=== PATIENT | male | born 1960 | race African-American/Black ===

== ENCOUNTER 2018-11-24 20:28 | Emergency (ER) | payer MEDICAID ==
[~2018-11-24] VITALS: Ht 193 cm; Wt 196.9 kg
[2018-11-24 21:23] LABS: Basophils # (auto) 0.1 uL; Eosinophils # (auto) 0.3 uL; Mean Corpuscular Volume 91.5 fL (80.0-100.0); Neutrophils # (auto) 8.7 uL; Nucleated Red Blood Cells % 0.1 %
[2018-11-24 21:25] LABS: Basophils % (auto) 0.5 % (0.0-2.0); Eosinophils % (auto) 2.1 % (0.0-7.0); Hematocrit 39.2 % (41.0-53.0); Hemoglobin 12.2 g/dL (13.5-17.5); Lymphocytes # (auto) 2.4 uL; Lymphocytes % (auto) 19.9 % (10.0-50.0); Mean Corpuscular Hemoglobin 28.5 pg (28.0-32.0); Mean Corpuscular Hgb Conc. 31.2 g/dL (32.0-36.0); Monocytes # (auto) 0.8 uL; Monocytes % (auto) 6.5 % (0.0-12.0); Platelet Count (auto) 265 10^3/uL (140-450); Red Blood Cells 4.28 10^6/uL (4.5-5.90); Red Cell Distribution Width 16.4 % (11.8-14.3); White Blood Cell 12.3 10^3/uL (4.4-10.8)
[2018-11-24 21:39] LABS: Albumin 2.8 g/dL (3.4-5.0); Calcium 8.9 mg/dL (8.5-10.1); Potassium 3.9 mmol/L (3.5-5.1)
[2018-11-24 21:44] LABS: BUN/Creatinine Ratio 9.3; Bilirubin, Total 0.4 mg/dL (0.2-1.0); Total Protein 8.1 g/dL (6.4-8.2)
[2018-11-25] MEDS ORDERED: PIPERACILLIN-TAZOB 3.375GM 100 ML IV ONE (01:45)
[2018-11-25] MEDS ORDERED: ENOXAPARIN SOD 100 MG/1 ML SYRINGE SC ONE (01:45)
[2018-11-25] MEDS ORDERED: VANCOMYCIN 1GM/250ML 250 ML IV ONE (01:45)
[2018-11-25 02:32] VITALS: BP 144/77
== END 2018-11-25 04:18 | disposition home or self-care (01) ==
LOC: ER 20:28
DX: I82.4Z2 Acute embolism and thrombosis of unspecified deep veins of left distal lower extremity (principal); L89.149 Pressure ulcer of left lower back, unspecified stage; I13.0 Hypertensive heart and chronic kidney disease with heart failure and stage 1 through stage 4 chronic kidney disease, or unspecified chronic kidney disease; E11.22 Type 2 diabetes mellitus with diabetic chronic kidney disease; N18.9 Chronic kidney disease, unspecified; I50.9 Heart failure, unspecified; J44.9 Chronic obstructive pulmonary disease, unspecified; E78.00 Pure hypercholesterolemia, unspecified
CPT/HCPCS: 36415; 80053; 83605; 85025; 87040; 87077; 87186; 87205; 93971; 96365; 96367; 96372; 99284; J1650; J2543; J3370

== ENCOUNTER 2018-12-07 10:32 | Emergency (ER) | payer MEDICAID ==
[~2018-12-07] VITALS: Ht 193 cm; Wt 216.4 kg
[2018-12-07] MEDS ORDERED: CLINDAMYCIN 600 MG/4 ML VL IM ONE (11:15)
[2018-12-07] MEDS ORDERED: PIPERACILLIN-TAZOB 3.375GM 100 ML IV ONE (11:15)
[2018-12-07 11:17] LABS: Basophils # (auto) 0.1 uL; Eosinophils # (auto) 0 uL; Eosinophils % (auto) 0.2 % (0.0-7.0); Mean Corpuscular Hgb Conc. 30.8 g/dL (32.0-36.0); Nucleated Red Blood Cells % 0.1 %
[2018-12-07 11:19] LABS: Basophils % (auto) 0.9 % (0.0-2.0); Hematocrit 37.2 % (41.0-53.0); Hemoglobin 11.5 g/dL (13.5-17.5); Lymphocytes # (auto) 3.2 uL; Lymphocytes % (auto) 24.7 % (10.0-50.0); Mean Corpuscular Hemoglobin 28.2 pg (28.0-32.0); Mean Corpuscular Volume 91.3 fL (80.0-100.0); Monocytes % (auto) 8.1 % (0.0-12.0); Neutrophils # (auto) 8.4 uL; Neutrophils % (auto) 66.1 % (37.0-80.0); Platelet Count (auto) 298 10^3/uL (140-450); Red Blood Cells 4.07 10^6/uL (4.5-5.90); Red Cell Distribution Width 17.7 % (11.8-14.3); White Blood Cell 12.8 10^3/uL (4.4-10.8)
[2018-12-07 11:31] LABS: Albumin 2.6 g/dL (3.4-5.0); BUN/Creatinine Ratio 8.2; Calcium 8.2 mg/dL (8.5-10.1); Magnesium 2.1 mg/dL (1.6-2.6); Potassium 3.3 mmol/L (3.5-5.1)
[2018-12-07 11:36] LABS: Bilirubin, Total 0.5 mg/dL (0.2-1.0); INR 1.07 (0.9-1.15); Partial Thromboplastin Time 29.9 sec (23.64-32.05); Total Protein 7.6 g/dL (6.4-8.2)
[2018-12-07 11:52] LABS: Urine Bacteria FEW /hpf (None Seen); Urine Blood Negative /uL (Negative); Urine Specific Gravity 1.009 (1.001-1.035); Urine WBC 33 /hpf (0 - 3)
[2018-12-07] MEDS ORDERED: POTASSIUM EFFERVESENT TAB 25 MEQ PO ONE (12:30)
[2018-12-07 13:00] VITALS: BP 95/53
== END 2018-12-07 13:17 | disposition home or self-care (01) ==
LOC: EDBD 10:32 → ER 10:32
DX: I82.402 Acute embolism and thrombosis of unspecified deep veins of left lower extremity (principal); N39.0 Urinary tract infection, site not specified; E66.9 Obesity, unspecified; J44.9 Chronic obstructive pulmonary disease, unspecified; E78.5 Hyperlipidemia, unspecified; E11.22 Type 2 diabetes mellitus with diabetic chronic kidney disease; I13.0 Hypertensive heart and chronic kidney disease with heart failure and stage 1 through stage 4 chronic kidney disease, or unspecified chronic kidney disease; N18.9 Chronic kidney disease, unspecified; I50.9 Heart failure, unspecified; Z68.43 Body mass index [BMI] 50.0-59.9, adult
CPT/HCPCS: 36415; 80053; 81001; 83735; 84484; 85025; 85610; 85730; 93005; 93970; 96365; 96366; 96372; 99284; J2543

== ENCOUNTER 2019-01-12 00:15 | Inpatient (IN) | payer MEDICAID ==
[~2019-01-12] VITALS: Ht 193 cm; Wt 222.0 kg
[2019-01-12 01:21] LABS: Basophils # (auto) 0.1 uL; Eosinophils # (auto) 0.1 uL; Hematocrit 38.7 % (41.0-53.0); Hemoglobin 12.2 g/dL (13.5-17.5); Lymphocytes # (auto) 1.9 uL; Lymphocytes % (auto) 28.4 % (10.0-50.0); Mean Corpuscular Hgb Conc. 31.5 g/dL (32.0-36.0); Mean Corpuscular Volume 88.9 fL (80.0-100.0); Monocytes # (auto) 0.6 uL; Monocytes % (auto) 9.4 % (0.0-12.0); Neutrophils % (auto) 59.2 % (37.0-80.0); Nucleated Red Blood Cells % 0.9 %; Platelet Count (auto) 229 10^3/uL (140-450); Red Blood Cells 4.35 10^6/uL (4.5-5.90); Red Cell Distribution Width 18.8 % (11.8-14.3); White Blood Cell 6.8 10^3/uL (4.4-10.8)
[2019-01-12 01:37] LABS: INR 1.13 (0.9-1.15); Partial Thromboplastin Time 27.1 sec (23.64-32.05)
[2019-01-12 01:38] LABS: Alanine Aminotransferase 24 U/L (16-61); Albumin 2.9 g/dL (3.4-5.0); Anion Gap 7 (5-15); Blood Urea Nitrogen 25 mg/dL (7-18); Calcium 8.4 mg/dL (8.5-10.1); Carbon Dioxide 31 mmol/L (21-32); Chloride 104 mmol/L (98-107); GFR African American 76 mL/min; GFR Non-African American 63 mL/min; Glucose 112 mg/dL (74-106); Potassium 4.3 mmol/L (3.5-5.1); Sodium 142 mmol/L (136-145)
[2019-01-12 01:48] LABS: Alkaline Phosphatase 86 U/L (45-117); Aspartate Aminotransferase 16 U/L (15-37); Bilirubin, Total 0.4 mg/dL (0.2-1.0); Total Protein 7.7 g/dL (6.4-8.2)
[2019-01-12] MEDS ORDERED: FUROSEMIDE 40 MG/4 ML VIAL IV ONE (03:45)
[2019-01-12] MEDS ORDERED: IPRATROPIUM BROM 0.5 MG/2.5ML INH SOL NEB PRN (05:00)
[2019-01-12] MEDS ORDERED: DEXTROSE (50%) 50ML SYRG IV PRN (05:00)
[2019-01-12] MEDS ORDERED: LORazepam 2MG/ML-1ML VIAL IV PRN (05:00)
[2019-01-12] MEDS ORDERED: ALBUTEROL SULF 2.5 MG/0.5ML(0.5%) NEB SOLN NEB PRN (05:00)
[2019-01-12] MEDS: IPRATROPIUM BROM 0.5 MG/2.5ML INH SOL NEB SCH ×5 (06:00→22:34)
[2019-01-12] MEDS: ALBUTEROL SULF 2.5 MG/0.5ML(0.5%) NEB SOLN NEB SCH ×5 (06:00→22:34)
[2019-01-12] MEDS: InsuLIN REG 1unit/0.01ml Soln (100units/ml) SC SCH ×4 (07:00→21:21)
[2019-01-12] MEDS: ACCU-CHEK COMFORT CURVE STRIP VI SCH ×4 (08:48→21:19)
[2019-01-12] MEDS ORDERED: PANTOPRAZOLE 40 MG/10 ML VIAL INJ IV SCH (10:00)
[2019-01-12] MEDS ORDERED: BENAZEPRIL HCL 10 MG TAB PO SCH (10:00)
[2019-01-12] MEDS ORDERED: FUROSEMIDE 40 MG/4 ML VIAL IV SCH (10:00)
[2019-01-12 10:03] LABS: Urine Bacteria MANY /hpf (None Seen); Urine Blood Negative /uL (Negative); Urine Mucus FEW (None Seen); Urine Specific Gravity 1.015 (1.001-1.035); Urine WBC 5 /hpf (0 - 3)
[2019-01-12] MEDS: ACETAMINOPHEN 500 MG TAB PO PRN ×2 (10:21→18:01)
[2019-01-12 11:30] VITALS: BP 104/44
[2019-01-12 13:01] VITALS: BP 112/64
[2019-01-12 16:53] VITALS: BP 115/61
[2019-01-12] MEDS: Glucerna Carbsteady SHAKE Vanilla 8oz PO SCH (18:00)
[2019-01-12] MEDS: CLINDAMYCIN HCL 150 MG CAP PO SCH ×2 (18:01→23:29)
[2019-01-12] MEDS: CEPHALEXIN 250 MG CAP PO SCH ×2 (18:02→23:29)
[2019-01-12] MEDS: SPIRONOLACTONE 25 MG TAB PO SCH (18:02)
[2019-01-12] MEDS: FUROSEMIDE 100 MG/10ML VIAL IV SCH (18:03)
[2019-01-12 21:00] VITALS: BP 111/56
[2019-01-12] MEDS ORDERED: HYDROcodone-ACET 5/325MG TAB PO PRN (21:00)
[2019-01-12 21:15] LABS: Alcohol, Urine < 3.0 mg/dL (0-5); Amphetamine Screen, Urine NEGATIVE (NEGATIVE); Barbiturate Scree,Urine NEGATIVE (NEGATIVE); Benzodiazephine Screen, Urine NEGATIVE (NEGATIVE); Cannabinoid Screen, Urine NEGATIVE (NEGATIVE); Cocaine Screen, Urine NEGATIVE (NEGATIVE); Opiate Scree,Urine NEGATIVE (NEGATIVE); Phencyclidine Screen, Urine NEGATIVE (NEGATIVE)
[2019-01-12] MEDS: ATORVASTATIN 20 MG TAB PO SCH (21:16)
[2019-01-13] VITALS (31 sets, daily range): BP systolic 81–165; BP diastolic 34–105
[2019-01-13] MEDS: ALBUTEROL SULF 2.5 MG/0.5ML(0.5%) NEB SOLN NEB SCH ×5 (06:07→22:29)
[2019-01-13] MEDS: IPRATROPIUM BROM 0.5 MG/2.5ML INH SOL NEB SCH ×5 (06:07→22:29)
[2019-01-13] MEDS: CEPHALEXIN 250 MG CAP PO SCH ×2 (06:32→13:04)
[2019-01-13] MEDS: CLINDAMYCIN HCL 150 MG CAP PO SCH ×2 (06:32→13:04)
[2019-01-13] MEDS: SPIRONOLACTONE 25 MG TAB PO SCH (06:32)
[2019-01-13] MEDS: FUROSEMIDE 100 MG/10ML VIAL IV SCH ×2 (06:33→19:52)
[2019-01-13] MEDS: ACCU-CHEK COMFORT CURVE STRIP VI SCH ×3 (06:33→21:04)
[2019-01-13] MEDS: InsuLIN REG 1unit/0.01ml Soln (100units/ml) SC SCH ×3 (06:38→21:10)
[2019-01-13 09:57] LABS: Basophils # (auto) 0.1 uL; Basophils % (auto) 1.7 % (0.0-2.0); Eosinophils # (auto) 0.1 uL; Eosinophils % (auto) 1.1 % (0.0-7.0); Hematocrit 41.9 % (41.0-53.0); Hemoglobin 12.9 g/dL (13.5-17.5); Lymphocytes # (auto) 1.5 uL; Lymphocytes % (auto) 19.5 % (10.0-50.0); Mean Corpuscular Hemoglobin 27.8 pg (28.0-32.0); Mean Corpuscular Hgb Conc. 30.8 g/dL (32.0-36.0); Mean Corpuscular Volume 90.2 fL (80.0-100.0); Monocytes # (auto) 0.6 uL; Monocytes % (auto) 7.5 % (0.0-12.0); Neutrophils # (auto) 5.4 uL; Neutrophils % (auto) 70.2 % (37.0-80.0); Nucleated Red Blood Cells % 0.2 %; Platelet Count (auto) 226 10^3/uL (140-450); Red Blood Cells 4.65 10^6/uL (4.5-5.90); Red Cell Distribution Width 18.5 % (11.8-14.3); White Blood Cell 7.7 10^3/uL (4.4-10.8)
[2019-01-13] MEDS ORDERED: PANTOPRAZOLE 40 MG TAB PO SCH (10:00)
[2019-01-13] MEDS: Glucerna Carbsteady SHAKE Vanilla 8oz PO SCH ×2 (10:03→13:04)
[2019-01-13 10:15] LABS: Anion Gap 5 (5-15); BUN/Creatinine Ratio 15.3; Blood Urea Nitrogen 20 mg/dL (7-18); Calcium 8.5 mg/dL (8.5-10.1); Carbon Dioxide 33 mmol/L (21-32); Chloride 102 mmol/L (98-107); GFR African American 72 mL/min; GFR Non-African American 60 mL/min; Glucose 105 mg/dL (74-106); Potassium 4.9 mmol/L (3.5-5.1); Sodium 140 mmol/L (136-145)
[2019-01-13] MEDS: ACETAMINOPHEN 500 MG TAB PO PRN (12:33)
[2019-01-13] MEDS ORDERED: SUCCINYLCHOLINE CHLORIDE 20 MG/ML 10ML VIAL IV ONE ×2 (17:09→17:10)
[2019-01-13] MEDS ORDERED: ETOMIDATE (2MG/ML) 20ML VIAL IV ONE (17:10)
[2019-01-13] MEDS ORDERED: NOREPINEPHRINE 8 MG/250ML KIT 250 ML IV ONE (17:30)
[2019-01-13] MEDS ORDERED: MIDAZOLAM DRIP 50 mg/50mL 50 ML IV ONE (17:31)
[2019-01-13] MEDS: MIDAZOLAM DRIP 50 mg/50mL 50 ML IV SCH ×2 (18:30→21:17)
[2019-01-13] MEDS: NOREPINEPHRINE 8 MG/250ML KIT 250 ML IV SCH (18:30)
[2019-01-13] MEDS: FAMOTIDINE (10MG/ML) 2ML VL IV SCH (20:33)
[2019-01-13] MEDS: ATORVASTATIN 20 MG TAB PO SCH (20:33)
[2019-01-13] MEDS: CLINDAMYCIN 300MG IV 50 ML IV SCH (20:33)
[2019-01-13] MEDS ORDERED: SACUBITRIL-VALSARTAN 24mg/26mg TAB PO SCH (22:00)
[2019-01-14] VITALS (103 sets, daily range): BP systolic 90–141; BP diastolic 37–82
[2019-01-14] MEDS: MIDAZOLAM DRIP 50 mg/50mL 50 ML IV SCH ×5 (02:32→21:57)
[2019-01-14 04:14] LABS: Basophils # (auto) 0 uL; Basophils % (auto) 0.7 % (0.0-2.0); Eosinophils # (auto) 0 uL; Eosinophils % (auto) 0.2 % (0.0-7.0); Hematocrit 36.3 % (41.0-53.0); Hemoglobin 11.4 g/dL (13.5-17.5); Lymphocytes # (auto) 1.1 uL; Lymphocytes % (auto) 15.5 % (10.0-50.0); Mean Corpuscular Hemoglobin 27.9 pg (28.0-32.0); Mean Corpuscular Hgb Conc. 31.5 g/dL (32.0-36.0); Mean Corpuscular Volume 88.8 fL (80.0-100.0); Monocytes # (auto) 0.7 uL; Monocytes % (auto) 9.9 % (0.0-12.0); Neutrophils # (auto) 5.3 uL; Neutrophils % (auto) 73.7 % (37.0-80.0); Nucleated Red Blood Cells % 0.1 %; Platelet Count (auto) 196 10^3/uL (140-450); Red Blood Cells 4.09 10^6/uL (4.5-5.90); Red Cell Distribution Width 18.6 % (11.8-14.3); White Blood Cell 7.1 10^3/uL (4.4-10.8)
[2019-01-14 04:44] LABS: Albumin 2.8 g/dL (3.4-5.0); BUN/Creatinine Ratio 16.5; Calcium 8.4 mg/dL (8.5-10.1)
[2019-01-14 04:48] LABS: Bilirubin, Total 0.7 mg/dL (0.2-1.0); Total Protein 7.4 g/dL (6.4-8.2)
[2019-01-14] MEDS: CLINDAMYCIN 300MG IV 50 ML IV SCH ×3 (04:48→21:59)
[2019-01-14] MEDS: FUROSEMIDE 100 MG/10ML VIAL IV SCH ×2 (04:49→18:29)
[2019-01-14] MEDS: InsuLIN REG 1unit/0.01ml Soln (100units/ml) SC SCH ×4 (05:25→21:53)
[2019-01-14] MEDS: ACCU-CHEK COMFORT CURVE STRIP VI SCH ×4 (05:51→21:53)
[2019-01-14] MEDS: IPRATROPIUM BROM 0.5 MG/2.5ML INH SOL NEB SCH ×5 (06:24→22:23)
[2019-01-14] MEDS: ALBUTEROL SULF 2.5 MG/0.5ML(0.5%) NEB SOLN NEB SCH ×5 (06:24→22:23)
[2019-01-14] MEDS: ENOXAPARIN SOD 40 MG/0.4 ML SYRINGE SC SCH (09:33)
[2019-01-14] MEDS: FAMOTIDINE (10MG/ML) 2ML VL IV SCH ×2 (09:33→21:54)
[2019-01-14] MEDS: cefTRIAXone 1GM/50ML D5W 50 ML IV SCH (09:33)
[2019-01-14] MEDS: fentaNYL Drip 2500mCg/250mlNS 250 ML IV SCH (11:10)
[2019-01-14] MEDS: ASPirin-EC 81 mg tab PO SCH (11:30)
[2019-01-14] MEDS ORDERED: FURO1TAB31 PO (12:36)
[2019-01-14] MEDS ORDERED: APIX5TAB PO (12:37)
[2019-01-14] MEDS ORDERED: POTA-220 PO (12:37)
[2019-01-14] MEDS ORDERED: CLIN150C PO (12:37)
[2019-01-14] MEDS: NOREPINEPHRINE 8 MG/250ML KIT 250 ML IV SCH (18:30)
[2019-01-14] MEDS: ATORVASTATIN 20 MG TAB PO SCH (21:58)
[2019-01-15] VITALS (99 sets, daily range): BP systolic 102–143; BP diastolic 16–112
[2019-01-15] MEDS: MIDAZOLAM DRIP 50 mg/50mL 50 ML IV SCH ×5 (02:17→19:54)
[2019-01-15 03:57] LABS: Basophils # (auto) 0 uL; Basophils % (auto) 0.7 % (0.0-2.0); Eosinophils # (auto) 0.2 uL; Eosinophils % (auto) 2.7 % (0.0-7.0); Hemoglobin 11.7 g/dL (13.5-17.5); Lymphocytes % (auto) 17.5 % (10.0-50.0); Mean Corpuscular Hemoglobin 28.3 pg (28.0-32.0); Mean Corpuscular Hgb Conc. 32.5 g/dL (32.0-36.0); Mean Corpuscular Volume 87.1 fL (80.0-100.0); Monocytes # (auto) 0.6 uL; Monocytes % (auto) 9.6 % (0.0-12.0); Neutrophils # (auto) 4.1 uL; Neutrophils % (auto) 69.5 % (37.0-80.0); Nucleated Red Blood Cells % 0.1 %; Platelet Count (auto) 204 10^3/uL (140-450); Red Blood Cells 4.13 10^6/uL (4.5-5.90); Red Cell Distribution Width 18.5 % (11.8-14.3); White Blood Cell 5.9 10^3/uL (4.4-10.8)
[2019-01-15 04:19] LABS: Potassium 3.5 mmol/L (3.5-5.1)
[2019-01-15 04:25] LABS: Albumin 2.6 g/dL (3.4-5.0); Calcium 8.2 mg/dL (8.5-10.1); Magnesium 2.5 mg/dL (1.6-2.6); Total Protein 7.2 g/dL (6.4-8.2)
[2019-01-15] MEDS: CLINDAMYCIN 300MG IV 50 ML IV SCH (05:39)
[2019-01-15] MEDS: FUROSEMIDE 100 MG/10ML VIAL IV SCH ×2 (05:42→17:25)
[2019-01-15] MEDS: IPRATROPIUM BROM 0.5 MG/2.5ML INH SOL NEB SCH ×5 (06:09→22:29)
[2019-01-15] MEDS: ALBUTEROL SULF 2.5 MG/0.5ML(0.5%) NEB SOLN NEB SCH ×5 (06:09→22:29)
[2019-01-15] MEDS: InsuLIN REG 1unit/0.01ml Soln (100units/ml) SC SCH ×4 (06:35→22:37)
[2019-01-15] MEDS: ACCU-CHEK COMFORT CURVE STRIP VI SCH ×4 (06:35→22:37)
[2019-01-15] MEDS ORDERED: POTASSIUM CHL 20 Meq TABLET PO ONE (08:00)
[2019-01-15] MEDS: ENOXAPARIN SOD 40 MG/0.4 ML SYRINGE SC SCH (09:57)
[2019-01-15] MEDS: FAMOTIDINE (10MG/ML) 2ML VL IV SCH ×2 (09:57→22:30)
[2019-01-15] MEDS: ASPirin-EC 81 mg tab PO SCH (09:57)
[2019-01-15] MEDS: cefTRIAXone 1GM/50ML D5W 50 ML IV SCH (09:57)
[2019-01-15] MEDS ORDERED: MEROPENEM 1GM IVPB 100 ML IV ONE (13:15)
[2019-01-15] MEDS: MEROPENEM 1GM IVPB 100 ML IV SCH ×2 (15:06→22:30)
[2019-01-15] MEDS: fentaNYL Drip 2500mCg/250mlNS 250 ML IV SCH (15:06)
[2019-01-15] MEDS: ATORVASTATIN 20 MG TAB PO SCH (22:33)
[2019-01-15] MEDS: MUPIROCIN 2% OINT 15gm or 22gm EACHNOSTRI SCH (22:36)
[2019-01-16] VITALS (103 sets, daily range): BP systolic 89–143; BP diastolic 45–99
[2019-01-16] MEDS: MIDAZOLAM DRIP 50 mg/50mL 50 ML IV SCH ×5 (00:43→18:05)
[2019-01-16 04:48] LABS: Potassium 3.4 mmol/L (3.5-5.1)
[2019-01-16 04:54] LABS: BUN/Creatinine Ratio 13.6; Calcium 8.4 mg/dL (8.5-10.1)
[2019-01-16] MEDS: FUROSEMIDE 100 MG/10ML VIAL IV SCH ×2 (05:34→18:05)
[2019-01-16] MEDS: MEROPENEM 1GM IVPB 100 ML IV SCH ×3 (05:37→22:00)
[2019-01-16] MEDS: IPRATROPIUM BROM 0.5 MG/2.5ML INH SOL NEB SCH ×5 (05:52→22:17)
[2019-01-16] MEDS: ALBUTEROL SULF 2.5 MG/0.5ML(0.5%) NEB SOLN NEB SCH ×5 (05:53→22:17)
[2019-01-16] MEDS ORDERED: POTASSIUM CHL 20MEQ/100ML 100 ML IV SCH (06:45)
[2019-01-16] MEDS: InsuLIN REG 1unit/0.01ml Soln (100units/ml) SC SCH ×4 (07:00→22:00)
[2019-01-16] MEDS: ACCU-CHEK COMFORT CURVE STRIP VI SCH ×4 (07:02→22:00)
[2019-01-16] MEDS: POTASSIUM CHL 20MEQ/100ML 100 ML IV SCH ×2 (07:47→09:31)
[2019-01-16] MEDS: MUPIROCIN 2% OINT 15gm or 22gm EACHNOSTRI SCH ×2 (09:31→22:00)
[2019-01-16] MEDS: ENOXAPARIN SOD 40 MG/0.4 ML SYRINGE SC SCH (09:31)
[2019-01-16] MEDS: FAMOTIDINE (10MG/ML) 2ML VL IV SCH ×2 (09:31→22:52)
[2019-01-16] MEDS: ASPirin-EC 81 mg tab PO SCH (09:31)
[2019-01-16] MEDS: fentaNYL Drip 2500mCg/250mlNS 250 ML IV SCH ×2 (10:46→18:05)
[2019-01-16] MEDS ORDERED: Glucerna 1.2 Cal 1Liter BOTTLE GT SCH (14:30)
[2019-01-16] MEDS: ATORVASTATIN 20 MG TAB PO SCH (22:52)
[2019-01-17] VITALS (98 sets, daily range): BP systolic 87–141; BP diastolic 48–89
[2019-01-17 04:53] LABS: BUN/Creatinine Ratio 15.3; Calcium 8.5 mg/dL (8.5-10.1); Potassium 3.8 mmol/L (3.5-5.1)
[2019-01-17 05:01] LABS: Basophils # (auto) 0 uL; Basophils % (auto) 0.9 % (0.0-2.0); Eosinophils # (auto) 0.2 uL; Eosinophils % (auto) 4.3 % (0.0-7.0); Hematocrit 38.4 % (41.0-53.0); Lymphocytes # (auto) 1.1 uL; Mean Corpuscular Hemoglobin 27.4 pg (28.0-32.0); Mean Corpuscular Hgb Conc. 31.2 g/dL (32.0-36.0); Mean Corpuscular Volume 87.7 fL (80.0-100.0); Monocytes # (auto) 0.4 uL; Monocytes % (auto) 8.9 % (0.0-12.0); Neutrophils # (auto) 2.6 uL; Neutrophils % (auto) 59.9 % (37.0-80.0); Nucleated Red Blood Cells % 0.1 %; Platelet Count (auto) 209 10^3/uL (140-450); Red Blood Cells 4.37 10^6/uL (4.5-5.90); White Blood Cell 4.4 10^3/uL (4.4-10.8)
[2019-01-17] MEDS: MEROPENEM 1GM IVPB 100 ML IV SCH ×3 (06:00→23:24)
[2019-01-17] MEDS: FUROSEMIDE 100 MG/10ML VIAL IV SCH ×2 (06:00→17:56)
[2019-01-17] MEDS: ALBUTEROL SULF 2.5 MG/0.5ML(0.5%) NEB SOLN NEB SCH ×5 (06:51→22:29)
[2019-01-17] MEDS: IPRATROPIUM BROM 0.5 MG/2.5ML INH SOL NEB SCH ×5 (06:51→22:29)
[2019-01-17] MEDS: InsuLIN REG 1unit/0.01ml Soln (100units/ml) SC SCH ×4 (07:00→22:00)
[2019-01-17] MEDS: ACCU-CHEK COMFORT CURVE STRIP VI SCH ×4 (07:11→22:00)
[2019-01-17] MEDS: FAMOTIDINE (10MG/ML) 2ML VL IV SCH ×2 (09:42→23:24)
[2019-01-17] MEDS: ASPirin-EC 81 mg tab PO SCH (09:42)
[2019-01-17] MEDS: ENOXAPARIN SOD 40 MG/0.4 ML SYRINGE SC SCH (09:42)
[2019-01-17] MEDS: MUPIROCIN 2% OINT 15gm or 22gm EACHNOSTRI SCH ×2 (09:42→23:22)
[2019-01-17] MEDS: MIDAZOLAM DRIP 50 mg/50mL 50 ML IV SCH ×5 (09:52→23:22)
[2019-01-17] MEDS: methylPREDNISolone SOD SUCC 125 MG/2 ML VL IV SCH ×2 (13:33→23:22)
[2019-01-17] MEDS: fentaNYL Drip 2500mCg/250mlNS 250 ML IV SCH (17:52)
[2019-01-17] MEDS: ATORVASTATIN 20 MG TAB PO SCH (23:24)
[2019-01-18] VITALS (101 sets, daily range): BP systolic 98–151; BP diastolic 48–93
[2019-01-18] MEDS: MIDAZOLAM DRIP 50 mg/50mL 50 ML IV SCH ×6 (05:03→21:34)
[2019-01-18] MEDS: MEROPENEM 1GM IVPB 100 ML IV SCH ×3 (05:29→21:32)
[2019-01-18] MEDS: FUROSEMIDE 100 MG/10ML VIAL IV SCH ×2 (05:29→18:09)
[2019-01-18] MEDS: methylPREDNISolone SOD SUCC 125 MG/2 ML VL IV SCH ×3 (05:30→21:33)
[2019-01-18] MEDS: ALBUTEROL SULF 2.5 MG/0.5ML(0.5%) NEB SOLN NEB SCH ×5 (05:40→21:58)
[2019-01-18] MEDS: IPRATROPIUM BROM 0.5 MG/2.5ML INH SOL NEB SCH ×5 (05:40→21:58)
[2019-01-18] MEDS: ACCU-CHEK COMFORT CURVE STRIP VI SCH ×4 (07:00→23:32)
[2019-01-18] MEDS: InsuLIN REG 1unit/0.01ml Soln (100units/ml) SC SCH ×4 (07:00→23:32)
[2019-01-18 08:57] LABS: Basophils # (auto) 0 uL; Basophils % (auto) 0.6 % (0.0-2.0); Eosinophils # (auto) 0 uL; Hematocrit 42.5 % (41.0-53.0); Hemoglobin 13.4 g/dL (13.5-17.5); Lymphocytes # (auto) 0.7 uL; Lymphocytes % (auto) 12.3 % (10.0-50.0); Mean Corpuscular Hemoglobin 27.7 pg (28.0-32.0); Mean Corpuscular Hgb Conc. 31.5 g/dL (32.0-36.0); Monocytes # (auto) 0 uL; Monocytes % (auto) 0.5 % (0.0-12.0); Neutrophils # (auto) 4.6 uL; Neutrophils % (auto) 86.6 % (37.0-80.0); Platelet Count (auto) 228 10^3/uL (140-450); Red Blood Cells 4.83 10^6/uL (4.5-5.90); Red Cell Distribution Width 18.3 % (11.8-14.3); White Blood Cell 5.3 10^3/uL (4.4-10.8)
[2019-01-18 09:18] LABS: Calcium 9.3 mg/dL (8.5-10.1); Potassium 4.4 mmol/L (3.5-5.1)
[2019-01-18 09:20] LABS: BUN/Creatinine Ratio 17.9
[2019-01-18] MEDS: FAMOTIDINE (10MG/ML) 2ML VL IV SCH ×2 (10:18→21:32)
[2019-01-18] MEDS: MUPIROCIN 2% OINT 15gm or 22gm EACHNOSTRI SCH ×2 (10:18→21:34)
[2019-01-18] MEDS: ASPirin-EC 81 mg tab PO SCH (10:18)
[2019-01-18] MEDS: ENOXAPARIN SOD 40 MG/0.4 ML SYRINGE SC SCH (10:18)
[2019-01-18] MEDS: HALOPERIDOL 5 MG TAB PO SCH ×2 (11:45→21:33)
[2019-01-18] MEDS ORDERED: DEXTROSE (50%) 50ML SYRG IV PRN (12:45)
[2019-01-18] MEDS: fentaNYL Drip 2500mCg/250mlNS 250 ML IV SCH (14:00)
[2019-01-18] MEDS: DexMEDEtomidine 400 MCG in D5W 5% 96 ML IV SCH ×2 (19:00→20:58)
[2019-01-18] MEDS ORDERED: SODIUM CHLORIDE 0.9% 1,000 ML IV SCH (21:15)
[2019-01-18] MEDS: ATORVASTATIN 20 MG TAB PO SCH (21:33)
[2019-01-19] VITALS (99 sets, daily range): BP systolic 107–197; BP diastolic 61–140
[2019-01-19 03:53] LABS: Basophils # (auto) 0 uL; Basophils % (auto) 0.2 % (0.0-2.0); Eosinophils # (auto) 0 uL; Hematocrit 43.8 % (41.0-53.0); Hemoglobin 13.7 g/dL (13.5-17.5); Lymphocytes # (auto) 0.7 uL; Lymphocytes % (auto) 7.4 % (10.0-50.0); Mean Corpuscular Hemoglobin 27.9 pg (28.0-32.0); Mean Corpuscular Hgb Conc. 31.4 g/dL (32.0-36.0); Monocytes # (auto) 0.1 uL; Monocytes % (auto) 1.4 % (0.0-12.0); Neutrophils # (auto) 8.5 uL; Nucleated Red Blood Cells % 0.1 %; Platelet Count (auto) 241 10^3/uL (140-450); Red Blood Cells 4.93 10^6/uL (4.5-5.90); White Blood Cell 9.3 10^3/uL (4.4-10.8)
[2019-01-19 04:35] LABS: Calcium 9.2 mg/dL (8.5-10.1); Potassium 4.3 mmol/L (3.5-5.1)
[2019-01-19] MEDS: ACCU-CHEK COMFORT CURVE STRIP VI SCH ×3 (06:00→18:25)
[2019-01-19] MEDS: InsuLIN REG 1unit/0.01ml Soln (100units/ml) SC SCH ×3 (06:00→18:34)
[2019-01-19] MEDS: ALBUTEROL SULF 2.5 MG/0.5ML(0.5%) NEB SOLN NEB SCH ×5 (06:37→22:28)
[2019-01-19] MEDS: IPRATROPIUM BROM 0.5 MG/2.5ML INH SOL NEB SCH ×5 (06:37→22:28)
[2019-01-19] MEDS: MEROPENEM 1GM IVPB 100 ML IV SCH ×3 (06:58→21:59)
[2019-01-19] MEDS: DexMEDEtomidine 400 MCG in D5W 5% 96 ML IV SCH ×2 (06:58→14:46)
[2019-01-19] MEDS: methylPREDNISolone SOD SUCC 125 MG/2 ML VL IV SCH (07:01)
[2019-01-19] MEDS: FAMOTIDINE (10MG/ML) 2ML VL IV SCH ×2 (09:43→21:58)
[2019-01-19] MEDS: MUPIROCIN 2% OINT 15gm or 22gm EACHNOSTRI SCH ×2 (09:44→22:00)
[2019-01-19] MEDS: ENOXAPARIN SOD 40 MG/0.4 ML SYRINGE SC SCH (09:44)
[2019-01-19] MEDS: ASPirin-EC 81 mg tab PO SCH (09:44)
[2019-01-19] MEDS: HALOPERIDOL 5 MG TAB PO SCH ×2 (09:56→21:58)
[2019-01-19] MEDS ORDERED: FUROSEMIDE 100 MG/10ML VIAL IV SCH (10:00)
[2019-01-19] MEDS ORDERED: hydrALAZINE HCL 20 MG/ML VL IV PRN (10:15)
[2019-01-19] MEDS ORDERED: hydrALAZINE HCL 20 MG/ML VL ONE (10:18)
[2019-01-19] MEDS ORDERED: METOLAZONE 5 MG TAB PO ONE (11:45)
[2019-01-19] MEDS: methylPREDNISolone SOD SUCC 40 MG/ML VL IV SCH ×2 (14:44→21:58)
[2019-01-19] MEDS: MIDAZOLAM DRIP 50 mg/50mL 50 ML IV SCH ×2 (14:46→23:35)
[2019-01-19] MEDS: FUROSEMIDE 40 MG/4 ML VIAL IV SCH (18:24)
[2019-01-19] MEDS ORDERED: fentaNYL Drip 2500mCg/250mlNS 250 ML IV ONE (19:51)
[2019-01-19] MEDS: fentaNYL Drip 2500mCg/250mlNS 250 ML IV SCH (20:12)
[2019-01-19] MEDS: ATORVASTATIN 20 MG TAB PO SCH (21:58)
[2019-01-20] VITALS (89 sets, daily range): BP systolic 125–210; BP diastolic 62–135
[2019-01-20] MEDS: InsuLIN REG 1unit/0.01ml Soln (100units/ml) SC SCH ×5 (00:08→23:55)
[2019-01-20] MEDS: ACCU-CHEK COMFORT CURVE STRIP VI SCH ×4 (00:08→18:00)
[2019-01-20] MEDS: DexMEDEtomidine 400 MCG in D5W 5% 96 ML IV SCH ×3 (04:06→17:28)
[2019-01-20 04:28] LABS: Basophils # (auto) 0 uL; Eosinophils # (auto) 0 uL; Lymphocytes # (auto) 0.6 uL; Monocytes # (auto) 0.2 uL; Neutrophils # (auto) 10.3 uL
[2019-01-20 04:31] LABS: Hematocrit 43.7 % (41.0-53.0); Hemoglobin 13.4 g/dL (13.5-17.5); Lymphocytes % (auto) 5.8 % (10.0-50.0); Mean Corpuscular Hemoglobin 27.2 pg (28.0-32.0); Mean Corpuscular Hgb Conc. 30.8 g/dL (32.0-36.0); Mean Corpuscular Volume 88.3 fL (80.0-100.0); Monocytes % (auto) 2.1 % (0.0-12.0); Neutrophils % (auto) 92.1 % (37.0-80.0); Platelet Count (auto) 231 10^3/uL (140-450); Red Blood Cells 4.95 10^6/uL (4.5-5.90); Red Cell Distribution Width 18.4 % (11.8-14.3); White Blood Cell 11.1 10^3/uL (4.4-10.8)
[2019-01-20 05:03] LABS: Calcium 9.2 mg/dL (8.5-10.1); Potassium 3.9 mmol/L (3.5-5.1)
[2019-01-20 05:05] LABS: BUN/Creatinine Ratio 34.5
[2019-01-20] MEDS: FUROSEMIDE 40 MG/4 ML VIAL IV SCH ×2 (05:35→18:58)
[2019-01-20] MEDS: methylPREDNISolone SOD SUCC 40 MG/ML VL IV SCH ×3 (05:36→21:40)
[2019-01-20] MEDS: MEROPENEM 1GM IVPB 100 ML IV SCH ×4 (05:36→21:40)
[2019-01-20] MEDS: IPRATROPIUM BROM 0.5 MG/2.5ML INH SOL NEB SCH ×5 (05:53→22:55)
[2019-01-20] MEDS: ALBUTEROL SULF 2.5 MG/0.5ML(0.5%) NEB SOLN NEB SCH ×5 (05:53→22:55)
[2019-01-20] MEDS ORDERED: METOLAZONE 5 MG TAB PO SCH (10:00)
[2019-01-20] MEDS: HALOPERIDOL 5 MG TAB PO SCH ×3 (10:30→21:40)
[2019-01-20] MEDS: FAMOTIDINE (10MG/ML) 2ML VL IV SCH ×2 (10:36→21:40)
[2019-01-20] MEDS: ENOXAPARIN SOD 40 MG/0.4 ML SYRINGE SC SCH ×2 (10:37→21:41)
[2019-01-20] MEDS: ASPirin-EC 81 mg tab PO SCH (10:37)
[2019-01-20] MEDS: METOLAZONE 5 MG TAB PO SCH (10:37)
[2019-01-20] MEDS ORDERED: fentaNYL Drip 2500mCg/250mlNS 250 ML IV SCH (10:46)
[2019-01-20] MEDS: MUPIROCIN 2% OINT 15gm or 22gm EACHNOSTRI SCH (10:52)
[2019-01-20] MEDS: fentaNYL Drip 2500mCg/250mlNS 250 ML IV SCH (18:58)
[2019-01-20] MEDS: ACETAMINOPHEN 500 MG TAB PO PRN (20:18)
[2019-01-20] MEDS: ATORVASTATIN 20 MG TAB PO SCH (21:40)
[2019-01-21] VITALS (25 sets, daily range): BP systolic 121–164; BP diastolic 68–90
[2019-01-21] MEDS: ACCU-CHEK COMFORT CURVE STRIP VI SCH ×5 (00:25→23:42)
[2019-01-21] MEDS: DexMEDEtomidine 400 MCG in D5W 5% 96 ML IV SCH ×2 (02:22→11:16)
[2019-01-21 04:05] LABS: Basophils # (auto) 0 uL; Eosinophils # (auto) 0 uL; Hematocrit 45.7 % (41.0-53.0); Hemoglobin 14.3 g/dL (13.5-17.5); Lymphocytes # (auto) 1.3 uL; Lymphocytes % (auto) 10.2 % (10.0-50.0); Mean Corpuscular Hemoglobin 27.2 pg (28.0-32.0); Mean Corpuscular Hgb Conc. 31.2 g/dL (32.0-36.0); Monocytes # (auto) 0.9 uL; Neutrophils # (auto) 10.3 uL; Neutrophils % (auto) 82.8 % (37.0-80.0); Platelet Count (auto) 233 10^3/uL (140-450); Red Blood Cells 5.25 10^6/uL (4.5-5.90); Red Cell Distribution Width 18.5 % (11.8-14.3); White Blood Cell 12.5 10^3/uL (4.4-10.8)
[2019-01-21 04:36] LABS: Potassium 3.3 mmol/L (3.5-5.1)
[2019-01-21 04:38] LABS: BUN/Creatinine Ratio 32.4; Calcium 9.5 mg/dL (8.5-10.1)
[2019-01-21] MEDS: FUROSEMIDE 40 MG/4 ML VIAL IV SCH ×2 (06:19→17:48)
[2019-01-21] MEDS: MEROPENEM 1GM IVPB 100 ML IV SCH ×3 (06:19→23:05)
[2019-01-21] MEDS: methylPREDNISolone SOD SUCC 40 MG/ML VL IV SCH ×3 (06:20→23:07)
[2019-01-21] MEDS: InsuLIN REG 1unit/0.01ml Soln (100units/ml) SC SCH ×4 (06:20→23:43)
[2019-01-21] MEDS: IPRATROPIUM BROM 0.5 MG/2.5ML INH SOL NEB SCH ×5 (06:21→22:29)
[2019-01-21] MEDS: ALBUTEROL SULF 2.5 MG/0.5ML(0.5%) NEB SOLN NEB SCH ×5 (06:22→22:29)
[2019-01-21] MEDS: ASPirin-EC 81 mg tab PO SCH (09:24)
[2019-01-21] MEDS: FAMOTIDINE (10MG/ML) 2ML VL IV SCH ×2 (09:24→23:07)
[2019-01-21] MEDS: ENOXAPARIN SOD 40 MG/0.4 ML SYRINGE SC SCH ×2 (09:25→23:05)
[2019-01-21] MEDS: METOLAZONE 5 MG TAB PO SCH (09:25)
[2019-01-21] MEDS: HALOPERIDOL 5 MG TAB PO SCH ×3 (09:25→23:06)
[2019-01-21] MEDS ORDERED: POTASSIUM CHLORIDE 40 MEQ, LIDOCAINE 1% (LOCAL ANESTH.) 4 ML in SODIUM CHL 0.9% 100 ML IV ONE (10:00)
[2019-01-21 14:46] LABS: INR 1.17 (0.9-1.15); Partial Thromboplastin Time 26.5 sec (23.64-32.05)
[2019-01-21] MEDS: ACETAMINOPHEN 500 MG TAB PO PRN ×2 (15:49→23:42)
[2019-01-21] MEDS ORDERED: methylPREDNISolone SOD SUCC 40 MG/ML VL IV SCH (22:00)
[2019-01-21] MEDS: ATORVASTATIN 20 MG TAB PO SCH (23:06)
[2019-01-21] MEDS: POTASSIUM CHL 20 Meq TABLET PO SCH (23:06)
[2019-01-22 05:01] VITALS: BP 131/77
[2019-01-22] MEDS: InsuLIN REG 1unit/0.01ml Soln (100units/ml) SC SCH ×4 (06:00→22:55)
[2019-01-22] MEDS: FUROSEMIDE 40 MG/4 ML VIAL IV SCH ×2 (06:23→17:17)
[2019-01-22] MEDS: methylPREDNISolone SOD SUCC 40 MG/ML VL IV SCH ×3 (06:23→22:21)
[2019-01-22] MEDS: ACCU-CHEK COMFORT CURVE STRIP VI SCH ×4 (06:23→22:55)
[2019-01-22] MEDS: ALBUTEROL SULF 2.5 MG/0.5ML(0.5%) NEB SOLN NEB SCH ×5 (06:37→22:37)
[2019-01-22] MEDS: IPRATROPIUM BROM 0.5 MG/2.5ML INH SOL NEB SCH ×5 (06:37→22:37)
[2019-01-22 06:44] LABS: Basophils # (auto) 0 uL; Eosinophils # (auto) 0 uL; Hematocrit 49.3 % (41.0-53.0); Hemoglobin 15.8 g/dL (13.5-17.5); Lymphocytes # (auto) 0.9 uL; Mean Corpuscular Hemoglobin 27.5 pg (28.0-32.0); Mean Corpuscular Hgb Conc. 32.1 g/dL (32.0-36.0); Mean Corpuscular Volume 85.8 fL (80.0-100.0); Monocytes # (auto) 0.6 uL; Monocytes % (auto) 6.6 % (0.0-12.0); Neutrophils # (auto) 8.1 uL; Neutrophils % (auto) 84.4 % (37.0-80.0); Nucleated Red Blood Cells % 0.1 %; Platelet Count (auto) 224 10^3/uL (140-450); Red Blood Cells 5.74 10^6/uL (4.5-5.90); White Blood Cell 9.6 10^3/uL (4.4-10.8)
[2019-01-22 06:53] LABS: Potassium 3.9 mmol/L (3.5-5.1)
[2019-01-22 06:59] LABS: BUN/Creatinine Ratio 34.5; Calcium 9.3 mg/dL (8.5-10.1); Magnesium 2.4 mg/dL (1.6-2.6)
[2019-01-22 09:00] VITALS: BP 123/81
[2019-01-22] MEDS: FAMOTIDINE (10MG/ML) 2ML VL IV SCH ×2 (09:23→22:20)
[2019-01-22] MEDS: MEROPENEM 1GM IVPB 100 ML IV SCH ×2 (09:24→17:07)
[2019-01-22] MEDS: METOLAZONE 5 MG TAB PO SCH (09:25)
[2019-01-22] MEDS: HALOPERIDOL 5 MG TAB PO SCH ×3 (09:25→22:00)
[2019-01-22] MEDS: ASPirin-EC 81 mg tab PO SCH (09:25)
[2019-01-22] MEDS: POTASSIUM CHL 20 Meq TABLET PO SCH ×2 (09:26→22:54)
[2019-01-22] MEDS: ENOXAPARIN SOD 40 MG/0.4 ML SYRINGE SC SCH ×2 (09:26→22:55)
[2019-01-22 13:00] VITALS: BP 106/68
[2019-01-22 17:00] VITALS: BP 115/71
[2019-01-22 21:46] VITALS: BP 119/72
[2019-01-22] MEDS: ATORVASTATIN 20 MG TAB PO SCH (22:34)
[2019-01-23] MEDS: MEROPENEM 1GM IVPB 100 ML IV SCH ×3 (01:59→18:04)
[2019-01-23 04:43] VITALS: BP 96/64
[2019-01-23] MEDS: InsuLIN REG 1unit/0.01ml Soln (100units/ml) SC SCH ×4 (06:00→22:43)
[2019-01-23] MEDS: FUROSEMIDE 40 MG/4 ML VIAL IV SCH ×2 (06:00→18:04)
[2019-01-23] MEDS: IPRATROPIUM BROM 0.5 MG/2.5ML INH SOL NEB SCH ×5 (06:20→22:45)
[2019-01-23] MEDS: ALBUTEROL SULF 2.5 MG/0.5ML(0.5%) NEB SOLN NEB SCH ×5 (06:20→22:45)
[2019-01-23] MEDS: methylPREDNISolone SOD SUCC 40 MG/ML VL IV SCH ×3 (06:54→22:36)
[2019-01-23] MEDS: ACCU-CHEK COMFORT CURVE STRIP VI SCH ×4 (06:55→22:43)
[2019-01-23 08:02] LABS: Basophils # (auto) 0 uL; Basophils % (auto) 0.2 % (0.0-2.0); Eosinophils # (auto) 0 uL; Hematocrit 50.3 % (41.0-53.0); Hemoglobin 15.9 g/dL (13.5-17.5); Lymphocytes # (auto) 0.9 uL; Mean Corpuscular Hgb Conc. 31.7 g/dL (32.0-36.0); Monocytes # (auto) 0.8 uL; Monocytes % (auto) 7.1 % (0.0-12.0); Neutrophils % (auto) 84.7 % (37.0-80.0); Platelet Count (auto) 245 10^3/uL (140-450); Red Blood Cells 5.91 10^6/uL (4.5-5.90); Red Cell Distribution Width 18.3 % (11.8-14.3); White Blood Cell 11.8 10^3/uL (4.4-10.8)
[2019-01-23 08:16] LABS: Potassium 3.6 mmol/L (3.5-5.1)
[2019-01-23 08:33] LABS: Calcium 9.7 mg/dL (8.5-10.1)
[2019-01-23 08:46] VITALS: BP 115/67
[2019-01-23] MEDS: FAMOTIDINE (10MG/ML) 2ML VL IV SCH ×2 (09:08→22:37)
[2019-01-23] MEDS: METOLAZONE 5 MG TAB PO SCH (09:10)
[2019-01-23] MEDS: ASPirin-EC 81 mg tab PO SCH (09:10)
[2019-01-23] MEDS: ENOXAPARIN SOD 40 MG/0.4 ML SYRINGE SC SCH ×2 (09:11→22:43)
[2019-01-23] MEDS: HALOPERIDOL 5 MG TAB PO SCH ×2 (09:11→19:54)
[2019-01-23] MEDS: POTASSIUM CHL 20 Meq TABLET PO SCH ×2 (09:11→22:00)
[2019-01-23 10:55] LABS: BUN/Creatinine Ratio 35.1; Potassium 3.9 mmol/L (3.5-5.1)
[2019-01-23 11:38] VITALS: BP 115/67
[2019-01-23 13:00] VITALS: BP 146/93
[2019-01-23 16:42] VITALS: BP 117/79
[2019-01-23 22:23] VITALS: BP 115/77
[2019-01-23] MEDS: ATORVASTATIN 20 MG TAB PO SCH (22:42)
[2019-01-24] MEDS: MEROPENEM 1GM IVPB 100 ML IV SCH ×3 (01:27→17:18)
[2019-01-24 05:25] VITALS: BP 127/72
[2019-01-24] MEDS: ALBUTEROL SULF 2.5 MG/0.5ML(0.5%) NEB SOLN NEB SCH ×4 (06:00→18:00)
[2019-01-24] MEDS: InsuLIN REG 1unit/0.01ml Soln (100units/ml) SC SCH ×3 (06:00→17:53)
[2019-01-24] MEDS: IPRATROPIUM BROM 0.5 MG/2.5ML INH SOL NEB SCH ×4 (06:00→18:00)
[2019-01-24] MEDS: FUROSEMIDE 40 MG/4 ML VIAL IV SCH ×2 (06:08→17:52)
[2019-01-24] MEDS: ACCU-CHEK COMFORT CURVE STRIP VI SCH ×3 (06:09→17:52)
[2019-01-24 09:00] VITALS: BP 126/79
[2019-01-24] MEDS: ENOXAPARIN SOD 40 MG/0.4 ML SYRINGE SC SCH (10:00)
[2019-01-24] MEDS: HALOPERIDOL 5 MG TAB PO SCH (10:00)
[2019-01-24] MEDS: POTASSIUM CHL 20 Meq TABLET PO SCH (10:00)
[2019-01-24] MEDS: methylPREDNISolone SOD SUCC 40 MG/ML VL IV SCH (10:00)
[2019-01-24 10:08] LABS: Basophils # (auto) 0.1 uL; Monocytes # (auto) 1.2 uL
[2019-01-24 10:09] LABS: Basophils % (auto) 0.6 % (0.0-2.0); Eosinophils # (auto) 0 uL; Eosinophils % (auto) 0.3 % (0.0-7.0); Hematocrit 50.5 % (41.0-53.0); Hemoglobin 16.1 g/dL (13.5-17.5); Lymphocytes # (auto) 1.3 uL; Lymphocytes % (auto) 9.5 % (10.0-50.0); Mean Corpuscular Hemoglobin 27.4 pg (28.0-32.0); Mean Corpuscular Hgb Conc. 31.9 g/dL (32.0-36.0); Mean Corpuscular Volume 85.8 fL (80.0-100.0); Monocytes % (auto) 8.6 % (0.0-12.0); Neutrophils # (auto) 11.2 uL; Platelet Count (auto) 225 10^3/uL (140-450); Red Blood Cells 5.89 10^6/uL (4.5-5.90); Red Cell Distribution Width 18.4 % (11.8-14.3); White Blood Cell 13.8 10^3/uL (4.4-10.8)
[2019-01-24 10:28] LABS: BUN/Creatinine Ratio 39.8; Potassium 3.6 mmol/L (3.5-5.1)
[2019-01-24] MEDS: FAMOTIDINE (10MG/ML) 2ML VL IV SCH (10:44)
[2019-01-24] MEDS: ASPirin-EC 81 mg tab PO SCH (10:45)
[2019-01-24] MEDS: METOLAZONE 5 MG TAB PO SCH (10:46)
[2019-01-24 13:00] VITALS: BP 126/77
[2019-01-24 17:14] VITALS: BP 131/80
[2019-01-24 22:00] VITALS: BP 129/91
== END 2019-01-24 21:19 | disposition home health service (06) | DRG 130 ==
LOC: ER 00:15 → EDBD 00:15 → TELE 00:16 → TELE-EAST 10:48 → ICU WEST 01-13 17:31 → TELE-EAST 01-21 16:50
PROVIDERS: ADMIT Nurse Practitioner Family; ATTEND Internal Medicine
PROC: 5A1955Z Respiratory Ventilation, Greater than 96 Consecutive Hours (ICD-10-PCS; principal; 2019-01-13)
PROC: 0BH17EZ Insertion of Endotracheal Airway into Trachea, Via Natural or Artificial Opening (ICD-10-PCS; 2019-01-13)
PROC: 5A09357 Assistance with Respiratory Ventilation, Less than 24 Consecutive Hours, Continuous Positive Airway Pressure (ICD-10-PCS; 2019-01-13)
PROC: 5A09357 Assistance with Respiratory Ventilation, Less than 24 Consecutive Hours, Continuous Positive Airway Pressure (ICD-10-PCS; 2019-01-20)
PROC: 5A1935Z Respiratory Ventilation, Less than 24 Consecutive Hours (ICD-10-PCS; 2019-01-20)
PROC: 0BH17EZ Insertion of Endotracheal Airway into Trachea, Via Natural or Artificial Opening (ICD-10-PCS; 2019-01-20)
PROC: 5A1935Z Respiratory Ventilation, Less than 24 Consecutive Hours (ICD-10-PCS; 2019-01-21)
PROC: 0BH17EZ Insertion of Endotracheal Airway into Trachea, Via Natural or Artificial Opening (ICD-10-PCS; 2019-01-21)
PROC: 5A1935Z Respiratory Ventilation, Less than 24 Consecutive Hours (ICD-10-PCS; 2019-01-22)
PROC: 0BH17EZ Insertion of Endotracheal Airway into Trachea, Via Natural or Artificial Opening (ICD-10-PCS; 2019-01-22)
PROC: 5A1935Z Respiratory Ventilation, Less than 24 Consecutive Hours (ICD-10-PCS; 2019-01-23)
PROC: 0BH17EZ Insertion of Endotracheal Airway into Trachea, Via Natural or Artificial Opening (ICD-10-PCS; 2019-01-23)
PROC: 5A1935Z Respiratory Ventilation, Less than 24 Consecutive Hours (ICD-10-PCS; 2019-01-24)
PROC: 0BH17EZ Insertion of Endotracheal Airway into Trachea, Via Natural or Artificial Opening (ICD-10-PCS; 2019-01-24)
DX: J96.21 Acute and chronic respiratory failure with hypoxia (principal); N17.0 Acute kidney failure with tubular necrosis; J69.0 Pneumonitis due to inhalation of food and vomit; I50.43 Acute on chronic combined systolic (congestive) and diastolic (congestive) heart failure; L89.154 Pressure ulcer of sacral region, stage 4; J96.22 Acute and chronic respiratory failure with hypercapnia; E11.21 Type 2 diabetes mellitus with diabetic nephropathy; I13.0 Hypertensive heart and chronic kidney disease with heart failure and stage 1 through stage 4 chronic kidney disease, or unspecified chronic kidney disease; E44.0 Moderate protein-calorie malnutrition; D63.8 Anemia in other chronic diseases classified elsewhere; J98.11 Atelectasis; N39.0 Urinary tract infection, site not specified; E11.22 Type 2 diabetes mellitus with diabetic chronic kidney disease; E78.5 Hyperlipidemia, unspecified; R31.9 Hematuria, unspecified; E66.2 Morbid (severe) obesity with alveolar hypoventilation; E88.81 Metabolic syndrome and other insulin resistance; N18.2 Chronic kidney disease, stage 2 (mild); J44.1 Chronic obstructive pulmonary disease with (acute) exacerbation; Z16.12 Extended spectrum beta lactamase (ESBL) resistance; Z86.718 Personal history of other venous thrombosis and embolism; Z68.43 Body mass index [BMI] 50.0-59.9, adult; Z22.322 Carrier or suspected carrier of Methicillin resistant Staphylococcus aureus
CPT/HCPCS: 36415; 36600; 71045; 76775; 80048; 80053; 80061; 80307; 81001; 82805; 82962; 83036; 83735; 83880; 84443; 84484; 85025; 85379; 85610; 85730; 87070; 87077; 87081; 87086; 87186; 87205; 93005; 93306; 93970; 94002; 94003; 94640; 94660; 96374; 96376; 97110; 97116; 97163; 97530; A4618; G0378; J0330; J0696; J1815; J2001; J2185; J2250; J3480; J3490; J7060